=== PATIENT | female | born 1935 | race Caucasian/White ===

== ENCOUNTER 2018-03-19 22:34 | Inpatient (IN) ==
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
[2018-03-19] MEDS ORDERED: Morphine Inj 4 MG/ML Vial IV.PUSH ONE (23:11)
[2018-03-19] MEDS ORDERED: Ketamine Inj 200 MG/20 ML Vial IV.PUSH ONE (23:12)
[2018-03-19] MEDS ORDERED: Ketamine Inj 500 MG/10 ML Vial IV.PUSH ONE (23:45)
[2018-03-19 23:55] LABS: Baso % (Auto) 0.1 % (0.0-2.0); Eos % (Auto) 0.1 % (0.0-4.0); Hematocrit 34.9 % (35.0-46.0); Hemoglobin 11.7 gm/dL (11.6-15.3); Lymph # (Auto) 0.6 th/mm3 (1.0-4.8); Lymph % (Auto) 6.8 % (9.0-44.0); Mean Corpuscular HGB Conc 33.4 % (32.0-36.0); Mean Corpuscular Volume 95.7 fL (80.0-100.0); Mean Platelet Volume 7.6 fL (7.0-11.0); Mono # (Auto) 0.8 th/mm3 (0.0-0.9); Mono % (Auto) 9.6 % (0.0-8.0); Neut # (Auto) 7.2 th/mm3 (1.8-7.7); Neut % (Auto) 83.4 % (16.0-70.0); Platelet Count 151 th/mm3 (150-450); Red Blood Count 3.65 mil/mm3 (4.00-5.30); Red Cell Distribution Width 13.1 % (11.6-17.2); White Blood Count 8.6 th/mm3 (4.0-11.0)
[2018-03-20 00:25] LABS: Carbon Dioxide 24.7 meq/L (21.0-32.0)
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
[2018-03-20] MEDS: Sod Chloride 0.9% Inj 1,000 ML IV.SIG SCH ×2 (02:44→12:37)
[2018-03-20] MEDS: Morphine Inj 4 MG/ML Vial IV.PUSH PRN ×6 (02:52→22:48)
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
[2018-03-20] MEDS ORDERED: Methocarbamol 500 MG Tablet PO SCH (08:00)
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
[2018-03-20] MEDS: Senna/Docusate Sodium 8.6/50 MG Tablet PO SCH (09:49)
[2018-03-20] MEDS: Lisinopril 10 MG Tablet PO SCH (09:49)
[2018-03-20] MEDS: amLODIPine 10 MG Tablet PO SCH (09:50)
[2018-03-20] MEDS: Lidocaine 5% Patch T-DERMAL SCH (09:50)
[2018-03-20] MEDS: Polyethylene Glycol 3350 17 GM Packet PO SCH (09:50)
[2018-03-20] MEDS: Pantoprazole Inj 40 MG Vial IV.PUSH SCH (09:51)
[2018-03-20] MEDS: Levothyroxine 50 MCG Tablet PO SCH (10:01)
[2018-03-20] MEDS ORDERED: Morphine Inj 4 MG/ML Vial ONE (10:44)
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
[2018-03-20] MEDS: Methocarbamol Inj 1,000 MG in Sodium Chlor 0.9% Inj 240 ML IV.SIG SCH ×2 (14:29→22:00)
[2018-03-21] MEDS: Sod Chloride 0.9% Inj 1,000 ML IV.SIG SCH ×4 (02:39→20:57)
[2018-03-21] MEDS: Morphine Inj 4 MG/ML Vial IV.PUSH PRN ×4 (03:39→20:46)
[2018-03-21 05:18] LABS: Baso % (Auto) 0.3 % (0.0-2.0); Eos # (Auto) 0.2 th/mm3 (0.0-0.4); Eos % (Auto) 3.3 % (0.0-4.0); Hematocrit 32.8 % (35.0-46.0); Hemoglobin 10.8 gm/dL (11.6-15.3); Lymph # (Auto) 1.3 th/mm3 (1.0-4.8); Lymph % (Auto) 18.4 % (9.0-44.0); Mean Corpuscular HGB Conc 32.9 % (32.0-36.0); Mean Corpuscular Hemoglobin 32.1 pg (27.0-34.0); Mean Corpuscular Volume 97.8 fL (80.0-100.0); Mean Platelet Volume 8.2 fL (7.0-11.0); Mono # (Auto) 0.5 th/mm3 (0.0-0.9); Mono % (Auto) 7.8 % (0.0-8.0); Neut # (Auto) 4.9 th/mm3 (1.8-7.7); Neut % (Auto) 70.2 % (16.0-70.0); Platelet Count 114 th/mm3 (150-450); Red Blood Count 3.36 mil/mm3 (4.00-5.30); Red Cell Distribution Width 13.6 % (11.6-17.2); White Blood Count 6.9 th/mm3 (4.0-11.0)
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
[2018-03-21 06:04] LABS: Albumin 2.6 g/dL (3.4-5.0); Anion Gap 11 meq/L (5-15); Aspartate Aminotransferase 47 U/L (15-37); Blood Urea Nitrogen 7 mg/dL (7-18); Calcium 7.7 mg/dL (8.5-10.1); Chloride 113 meq/L (98-107); Glomerular Filtration Rate Greater Than 89 mL/min (>89); Glucose,Random 104 mg/dL (74-106); Potassium 3.8 meq/L (3.5-5.1); Sodium 145 meq/L (136-145)
[2018-03-21 06:08] LABS: Alanine Aminotransferase 40 U/L (10-53); Alkaline Phosphatase 72 U/L (45-117); Total Protein 5.6 g/dL (6.4-8.2)
[2018-03-21] MEDS: Levothyroxine 50 MCG Tablet PO SCH (06:36)
[2018-03-21] MEDS: Pantoprazole Inj 40 MG Vial IV.PUSH SCH (08:59)
[2018-03-21] MEDS: Lidocaine 5% Patch T-DERMAL SCH (09:00)
[2018-03-21] MEDS: Methocarbamol Inj 1,000 MG in Sodium Chlor 0.9% Inj 240 ML IV.SIG SCH ×2 (09:03→20:54)
[2018-03-21] MEDS ORDERED: Ibuprofen 600 MG Tablet PO SCH (10:45)
[2018-03-21] MEDS: Ibuprofen 400 MG Tablet PO SCH ×2 (12:21→20:47)
--- NOTE | 2018-03-21 17:33 | P.PNNS ---
Subjective Interval history: This afternoon the patient is doing well. She is awake and alert in the bed. She denies any neck pain or any pain, numbness or tingling to the extremities. She does complain of pain to the right chest wall due to her rib fractures. She has no sensorimotor deficits upon evaluation. Speech Therapy did evaluate the patient and recommend thin liquids. <Desmond Gaona E - Last Filed: 03/21/18 17:16> Physical Exam Vital signs: Vital Signs 03/20/18 20:00 03/20/18 20:34 03/20/18 20:49 Temperature 99.7 F H Pulse Rate 62 68 Respiratory Rate 25 H 22 Blood Pressure 133/61 Pulse Oximetry 100 100 98 03/20/18 22:47 03/21/18 00:00 03/21/18 00:10 Temperature 99.0 F Pulse Rate 71 79 Respiratory Rate 12 19 17 Blood Pressure 143/64 H Pulse Oximetry 98 03/21/18 02:39 03/21/18 03:44 03/21/18 04:00 Temperature 99.0 F Pulse Rate 75 71 Respiratory Rate 15 17 21 Blood Pressure 154/47 H Pulse Oximetry 98 03/21/18 06:35 03/21/18 06:36 03/21/18 08:00 Temperature 98.1 F Pulse Rate 58 L Respiratory Rate 15 15 10 L Blood Pressure 135/60 Pulse Oximetry 95 03/21/18 12:00 03/21/18 12:39 03/21/18 13:09 Temperature 98.8 F Pulse Rate 76 74 Respiratory Rate 16 17 12 Blood Pressure 175/70 H Pulse Oximetry 95 03/21/18 16:10 03/21/18 16:17 Temperature Pulse Rate 99 H Respiratory Rate 29 H Blood Pressure Pulse Oximetry 97 Intake & Output 03/20/18 03/21/18 03/21/18 18:59 06:59 18:59 Intake Total 1286 / 1286 950 / 950 2250 / 2250 Output Total 320 / 320 500 / 500 Balance 966 / 966 450 / 450 2250 / 2250 Weight 61 kg Intake: IV 1106 / 1106 850 / 850 2250 / 2250 Ofirmev Inj 1,000 mg In 100 ml 200 / 200 100 / 100 @ 400 mls/hr IV.SIG Q6H [facility] Rx# :[id number] Robaxin Inj 1,000 MG In NS Inj 250 / 250 250 / 250 250 / 250 240 ML @ 500 mls/hr IV.SIG Q8H [facility] Rx#:[id number] NS Inj 1,000 ML @ 50 mls/hr IV. 656 / 656 1999 / 1999 SIG .Q20H [facility] Rx#:[id number] Oral 180 / 180 100 / 100 Output: Urine 320 / 320 Urine Amount (Catheter) 500 / 500 Indwelling Urethral Catheter 500 / 500 Other: Date of Last Bowel Movement 03/19/18 03/19/18 03/19/18 Narrative: GENERAL: Awake & alert in bed watching TV. Affect essentially normal. Readily interacts. No apparent distress. HEENT: Normocephalic, atraumatic. PERRLA 2 mm brisk, EOMI. No otorrhea or rhinorrhea. MMM & pink, tongue midline to protrusion. NECK: In [place] J cervical collar. Midline cervical spine NTTP. No JVD. Trachea midline. MUSCULOSKELETAL: MEYER spontaneously & purposefully. Extremities NTTP. Lumbar spine NTTP. NEUROLOGICAL: AAOx3. Speech clear & appropriate. Follows simple commands w/o difficulty. CN II through XII grossly intact. PERRLA 2 mm brisk, EOMI. Tongue midline to protrusion. Sensation intact to light touch to all extremities. Muscle strength is normal to all major flexion & extension muscle groups of the extremities. - Urinary Catheter Management Indwelling Urethral Catheter Cath placed during this visit: no <Desmond Gaona E - Last Filed: 03/21/18 17:16> Vital signs: Vital Signs 03/23/18 22:00 03/23/18 23:53 03/24/18 00:00 Temperature 98.8 F Pulse Rate 83 90 100 H Respiratory Rate 16 21 Blood Pressure 165/77 H Pulse Oximetry 98 03/24/18 04:00 03/24/18 04:08 03/24/18 04:51 Temperature 98.3 F Pulse Rate 86 86 87 Respiratory Rate 22 16 Blood Pressure 171/77 H Pulse Oximetry 100 03/24/18 08:00 03/24/18 08:10 03/24/18 09:44 Temperature 98.4 F Pulse Rate 78 Respiratory Rate 24 18 Blood Pressure 164/85 H Pulse Oximetry 100 98 03/24/18 11:10 03/24/18 12:00 03/24/18 13:44 Temperature 98.5 F Pulse Rate 84 Respiratory Rate 19 17 25 H Blood Pressure 164/77 H Pulse Oximetry 100 03/24/18 16:00 Temperature 97.9 F Pulse Rate 108 H Respiratory Rate 28 H Blood Pressure 129/78 Pulse Oximetry 100 Intake & Output 03/24/18 03/24/18 03/25/18 06:59 18:59 06:59 Intake Total 360 / 360 700 / 700 Output Total 1000 / 1000 675 / 675 Balance -640 / -640 25 / 25 Weight 65.5 kg Intake: Oral 360 / 360 500 / 500 Oral Supplement 200 / 200 Output: Urine 1000 / 1000 675 / 675 Stool 0 / 0 Other: Date of Last Bowel Movement 03/19/18 03/19/18 # Bowel Movements 0 - Urinary Catheter Management Indwelling Urethral Catheter Cath placed during this visit: no <Seth Pereyra - Last Filed: 03/24/18 21:16> Assessment and Plan - Plan Impression: 1. Atypical hangman's fracture of C2 2. Mild acute L4 compression fracture The patient is doing well and is neurologically intact. Past 24 hrs: 99.7 T max. Abdomen/Pelvis CT 03/20/18 00:00 CONCLUSION: No evidence of acute abdominal or pelvic process. No masses are identified. Multiple rib fractures, transverse process fractures and fracture of the L4 vertebral body. Bilateral effusions and bibasilar atelectasis. Pancreatic duct dilatation as above. Chest CT 03/20/18 00:00 CONCLUSION: 1. Rib fractures on the right moderate size right pleural effusion with compressive atelectasis right base 2. There is no pneumothorax 3. Trace effusion left. Neck CTA 03/20/18 00:00 CONCLUSION: 1. CT fracture. 2. Vertebral arteries are intact. Chest X-Ray 03/20/18 07:11 CONCLUSION: 1. Hypoaerated lungs with mild atelectasis 2. Multiple right-sided rib fractures without evidence of pneumothorax or significant pleural effusion. 3. Mild cardiomegaly Cervical Spine CT 03/20/18 09:38 CONCLUSION: 1. Atypical hangman's fracture of C2 with posterior vertebral body fracture extending laterally into the pars intraarticularis and foramen transversarium. 2. No evidence of significant traumatic listhesis in the neutral position. 3. Mild degenerative anterolisthesis at C4-5 secondary to facet arthropathy. 4. Moderate facet arthropathy. 5. No evidence of additional fractures or epidural hematoma. Lumbar Spine CT 03/20/18 09:40 CONCLUSION: 1. Mild acute compression fracture of L4. 2. Mild facet arthropathy and degenerative disc disease 3. No other acute abnormality. Plan: Primary & critical care management per Trauma. Neuro checks. [place] J cervical collar at all times. Bedrest. Logroll patient. Diet per Speech Therapy. <Desmond Gaona - Last Filed: 03/21/18 17:16> - Attending Attestation The exam, history, and the medical decision-making described in the above note were completed with the assistance of the mid-level provider. I reviewed and agree with the findings presented. I attest that I had a [id number] encounter with the patient on the same day, and personally performed and documented my assessment and findings in the medical record. <Seth Pereyra - Last Filed: 03/24/18 21:16>
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
[2018-03-22] MEDS: Ibuprofen 400 MG Tablet PO SCH ×4 (00:16→22:58)
[2018-03-22] MEDS: Morphine Inj 4 MG/ML Vial IV.PUSH PRN ×4 (00:37→20:04)
[2018-03-22] MEDS: Methocarbamol Inj 1,000 MG in Sodium Chlor 0.9% Inj 240 ML IV.SIG SCH ×3 (02:32→18:11)
[2018-03-22 05:25] LABS: Baso % (Auto) 0.5 % (0.0-2.0); Eos # (Auto) 0.2 th/mm3 (0.0-0.4); Eos % (Auto) 3.5 % (0.0-4.0); Hematocrit 30.4 % (35.0-46.0); Hemoglobin 10.2 gm/dL (11.6-15.3); Lymph # (Auto) 1.2 th/mm3 (1.0-4.8); Lymph % (Auto) 18.5 % (9.0-44.0); Mean Corpuscular HGB Conc 33.5 % (32.0-36.0); Mean Corpuscular Hemoglobin 32.4 pg (27.0-34.0); Mean Corpuscular Volume 96.6 fL (80.0-100.0); Mean Platelet Volume 8.4 fL (7.0-11.0); Mono # (Auto) 0.6 th/mm3 (0.0-0.9); Mono % (Auto) 9.2 % (0.0-8.0); Neut # (Auto) 4.6 th/mm3 (1.8-7.7); Neut % (Auto) 68.3 % (16.0-70.0); Platelet Count 105 th/mm3 (150-450); Red Blood Count 3.14 mil/mm3 (4.00-5.30); Red Cell Distribution Width 13.6 % (11.6-17.2); White Blood Count 6.7 th/mm3 (4.0-11.0)
[2018-03-22 05:42] LABS: Alanine Aminotransferase 33 U/L (10-53); Albumin 2.5 g/dL (3.4-5.0); Anion Gap 8 meq/L (5-15); Aspartate Aminotransferase 32 U/L (15-37); Blood Urea Nitrogen 7 mg/dL (7-18); Calcium 7.6 mg/dL (8.5-10.1); Carbon Dioxide 22.8 meq/L (21.0-32.0); Chloride 113 meq/L (98-107); Glomerular Filtration Rate Greater Than 89 mL/min (>89); Glucose,Random 107 mg/dL (74-106); Sodium 144 meq/L (136-145)
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
[2018-03-22 05:45] LABS: Alkaline Phosphatase 74 U/L (45-117); Total Protein 5.3 g/dL (6.4-8.2)
[2018-03-22] MEDS: Levothyroxine 50 MCG Tablet PO SCH (05:50)
[2018-03-22] MEDS: Lidocaine 5% Patch T-DERMAL SCH (09:25)
[2018-03-22] MEDS: Sod Chloride 0.9% Inj 1,000 ML IV.SIG SCH (09:26)
[2018-03-22] MEDS: Pantoprazole Inj 40 MG Vial IV.PUSH SCH (09:26)
[2018-03-22] MEDS: Polyethylene Glycol 3350 17 GM Packet PO SCH (10:34)
[2018-03-22] MEDS: Senna/Docusate Sodium 8.6/50 MG Tablet PO SCH ×2 (10:34→20:04)
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
[2018-03-22] MEDS: Enoxaparin Inj 30 MG/0.3 ML Syringe SQ SCH (20:03)
[2018-03-23] MEDS: Methocarbamol Inj 1,000 MG in Sodium Chlor 0.9% Inj 240 ML IV.SIG SCH ×2 (02:11→09:04)
[2018-03-23] MEDS: Sod Chloride 0.9% Inj 1,000 ML IV.SIG SCH ×2 (04:00→09:44)
[2018-03-23] MEDS: Ibuprofen 400 MG Tablet PO SCH ×3 (04:22→16:30)
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
[2018-03-23 05:10] LABS: Baso % (Auto) 0.7 % (0.0-2.0); Eos # (Auto) 0.3 th/mm3 (0.0-0.4); Eos % (Auto) 3.9 % (0.0-4.0); Hematocrit 38.3 % (35.0-46.0); Hemoglobin 12.6 gm/dL (11.6-15.3); Lymph # (Auto) 1.3 th/mm3 (1.0-4.8); Mean Corpuscular HGB Conc 32.9 % (32.0-36.0); Mean Corpuscular Hemoglobin 31.8 pg (27.0-34.0); Mean Corpuscular Volume 96.9 fL (80.0-100.0); Mean Platelet Volume 8.5 fL (7.0-11.0); Mono # (Auto) 0.7 th/mm3 (0.0-0.9); Mono % (Auto) 9.9 % (0.0-8.0); Neut # (Auto) 4.4 th/mm3 (1.8-7.7); Neut % (Auto) 65.5 % (16.0-70.0); Platelet Count 131 th/mm3 (150-450); Red Blood Count 3.95 mil/mm3 (4.00-5.30); Red Cell Distribution Width 13.7 % (11.6-17.2); White Blood Count 6.7 th/mm3 (4.0-11.0)
[2018-03-23] MEDS: Levothyroxine 50 MCG Tablet PO SCH (05:30)
[2018-03-23 05:50] LABS: Alanine Aminotransferase 35 U/L (10-53); Albumin 2.8 g/dL (3.4-5.0); Alkaline Phosphatase 99 U/L (45-117); Anion Gap 11 meq/L (5-15); Aspartate Aminotransferase 36 U/L (15-37); Blood Urea Nitrogen 6 mg/dL (7-18); Calcium 8.4 mg/dL (8.5-10.1); Carbon Dioxide 19.6 meq/L (21.0-32.0); Chloride 110 meq/L (98-107); Glomerular Filtration Rate Greater Than 89 mL/min (>89); Glucose,Random 86 mg/dL (74-106); Potassium 3.2 meq/L (3.5-5.1); Sodium 141 meq/L (136-145); Total Protein 6.3 g/dL (6.4-8.2)
[2018-03-23] MEDS ORDERED: Potassium Chloride 20 MEQ Pwd Pkt PO ONE (07:00)
[2018-03-23] MEDS: amLODIPine 10 MG Tablet PO SCH (08:53)
[2018-03-23] MEDS: Senna/Docusate Sodium 8.6/50 MG Tablet PO SCH ×2 (08:53→20:11)
[2018-03-23] MEDS: Polyethylene Glycol 3350 17 GM Packet PO SCH (08:53)
[2018-03-23] MEDS: Lisinopril 10 MG Tablet PO SCH (08:53)
[2018-03-23] MEDS: Pantoprazole Inj 40 MG Vial IV.PUSH SCH (08:54)
[2018-03-23] MEDS: Potassium Chloride 25 MEQ Effervescent Tablet PO SCH ×2 (09:11→20:11)
[2018-03-23] MEDS: Enoxaparin Inj 30 MG/0.3 ML Syringe SQ SCH ×2 (09:12→20:15)
[2018-03-23] MEDS: Lidocaine 5% Patch T-DERMAL SCH (09:44)
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
--- NOTE | 2018-03-23 16:12 | P.PNNS ---
Subjective Interval history: 03/23: doing well, c/o of cervical pain <ArmaanCarmen - Last Filed: 03/23/18 16:09> Physical Exam Vital signs: Vital Signs 03/22/18 20:00 03/23/18 00:00 03/23/18 03:48 Temperature 98.8 F 98.8 F Pulse Rate 80 65 75 Respiratory Rate 23 20 22 Blood Pressure 177/79 H 163/70 H Pulse Oximetry 95 96 03/23/18 04:00 03/23/18 06:37 03/23/18 08:00 Temperature 98.4 F 98.5 F Pulse Rate 75 72 Respiratory Rate 16 22 Blood Pressure 176/81 H 189/82 H Pulse Oximetry 98 99 95 03/23/18 08:23 03/23/18 12:00 03/23/18 16:06 Temperature 98.5 F Pulse Rate 87 104 H 93 H Respiratory Rate 19 19 17 Blood Pressure 146/66 H Pulse Oximetry 98 96 Intake & Output 03/22/18 03/23/18 03/23/18 18:59 06:59 18:59 Intake Total 2600 / 2600 2740 / 2740 Output Total 1200 / 1200 Balance 2600 / 2600 1540 / 1540 Weight 64.5 kg Intake: IV 1250 / 1250 2500 / 2500 Robaxin Inj 1,000 MG In NS Inj 250 / 250 500 / 500 240 ML @ 500 mls/hr IV.SIG Q8H [facility] Rx#:[id number] NS Inj 1,000 ML @ 50 mls/hr IV. 1000 / 1000 2000 / 2000 SIG .Q20H [facility] Rx#:[id number] Oral 700 / 700 240 / 240 Oral Supplement 650 / 650 Output: Urine 1200 / 1200 Stool 0 / 0 Other: Date of Last Bowel Movement 03/19/18 03/19/18 Narrative: GENERAL: Awake & alert. No apparent distress. HEENT: Normocephalic, atraumatic. PERRLA 2 mm brisk, EOMI. MMM & pink, tongue midline to protrusion. NECK: In [place] cervical collar. No JVD. Trachea midline. MUSCULOSKELETAL: moves all four spontaneously & purposefully. NEUROLOGICAL: AAOx3. Speech clear & appropriate. Follows simple commands w/o difficulty. PERRLA 2 mm brisk, EOMI. Tongue midline to protrusion. - Urinary Catheter Management Indwelling Urethral Catheter Cath placed during this visit: yes, but has since been removed by the nurse Reason for continuing: Other continuation reason Insertion date: 03/20/18 Insertion time: 14:00 Removal date: 03/22/18 Removal time: 14:00 <Carmen Crook - Last Filed: 03/23/18 16:09> Vital signs: Vital Signs 03/23/18 20:00 03/23/18 20:26 03/23/18 22:00 Temperature 98.8 F Pulse Rate 98 H 107 H 83 Respiratory Rate 18 Blood Pressure 156/76 H Pulse Oximetry 94 L 95 03/23/18 23:53 03/24/18 00:00 03/24/18 04:00 Temperature 98.8 F Pulse Rate 90 100 H 86 Respiratory Rate 16 21 Blood Pressure 165/77 H Pulse Oximetry 98 03/24/18 04:08 03/24/18 04:51 03/24/18 08:00 Temperature 98.3 F 98.4 F Pulse Rate 86 87 78 Respiratory Rate 22 16 24 Blood Pressure 171/77 H 164/85 H Pulse Oximetry 100 100 03/24/18 08:10 03/24/18 09:44 03/24/18 11:10 Temperature Pulse Rate Respiratory Rate 18 19 Blood Pressure Pulse Oximetry 98 03/24/18 12:00 03/24/18 13:44 Temperature 98.5 F Pulse Rate 84 Respiratory Rate 17 25 H Blood Pressure 164/77 H Pulse Oximetry 100 Intake & Output 03/23/18 03/24/18 03/24/18 18:59 06:59 18:59 Intake Total 1090 / 1090 360 / 360 Output Total 1850 / 1850 1000 / 1000 Balance -760 / -760 -640 / -640 Weight 65.5 kg Intake: IV 250 / 250 Robaxin Inj 1,000 MG In NS Inj 250 / 250 240 ML @ 500 mls/hr IV.SIG Q8H [facility] Rx#:[id number] Oral 840 / 840 360 / 360 Output: Urine 1850 / 1850 1000 / 1000 Stool 0 / 0 0 / 0 Other: Date of Last Bowel Movement 03/19/18 03/19/18 03/19/18 Narrative: GENERAL: Ms López is awake & alert. No apparent distress. HEENT: Normocephalic, atraumatic. PERRLA 2 mm brisk, EOMI. MMM & pink, tongue midline to protrusion. NECK: In [place] cervical collar. No JVD. Trachea midline. MUSCULOSKELETAL: moves all four spontaneously & purposefully. NEUROLOGICAL: AAOx3. Speech clear & appropriate. Follows simple commands w/o difficulty. PERRLA 2 mm brisk, EOMI. Tongue midline to protrusion. - Urinary Catheter Management Indwelling Urethral Catheter Cath placed during this visit: no <Elgin Contreras - Last Filed: 03/24/18 16:40> Assessment and Plan - Plan Impression: 1. Atypical hangman's fracture of C2 2. Mild acute L4 compression fracture The patient continues to do well and remains neurologically intact. Cervical Spine CT 03/20/18 09:38 CONCLUSION: 1. Atypical hangman's fracture of C2 with posterior vertebral body fracture extending laterally into the pars intraarticularis and foramen transversarium. 2. No evidence of significant traumatic listhesis in the neutral position. 3. Mild degenerative anterolisthesis at C4-5 secondary to facet arthropathy. 4. Moderate facet arthropathy. 5. No evidence of additional fractures or epidural hematoma. Lumbar Spine CT 03/20/18 09:40 CONCLUSION: 1. Mild acute compression fracture of L4. 2. Mild facet arthropathy and degenerative disc disease 3. No other acute abnormality. Plan: cont Primary & critical care management per Trauma. Neuro checks. [place] cervical collar at all times. therapy and rehab efforts <Carmen Crook - Last Filed: 03/23/18 16:09> - Plan I again reviewed her studies Impression: 1. Atypical hangman's fracture of C2 2. Mild acute L4 compression fracture The patient continues to do well and remains neurologically intact. Cervical Spine CT 03/20/18 09:38 CONCLUSION: 1. Atypical hangman's fracture of C2 with posterior vertebral body fracture extending laterally into the pars intraarticularis and foramen transversarium. 2. No evidence of significant traumatic listhesis in the neutral position. 3. Mild degenerative anterolisthesis at C4-5 secondary to facet arthropathy. 4. Moderate facet arthropathy. 5. No evidence of additional fractures or epidural hematoma. Lumbar Spine CT 03/20/18 09:40 CONCLUSION: 1. Mild acute compression fracture of L4. 2. Mild facet arthropathy and degenerative disc disease 3. No other acute abnormality. Neuro. Continue neuro checks in a serial fashion. Pulmonary. aggressive pulmonary toilette, nasotracheal suction, and breathing treatments with nebulizers. Daily PT and OT Renal. Continue to monitor closely urine output, BUN and creatinine Endocrine. Continue to Monitor serial Acu checks and SSI as needed in detail ID continue to monitor for signs of infection Continue Protonix for stress ulcer prophylaxis Continue Aung hose and SCD's for DVT prophylaxis The exam, history, and the medical decision-making described in the above note were completed with the assistance of the mid-level provider. I reviewed and agree with the findings presented. I attest that I had a [id number] encounter with the patient on the same day, and personally performed and documented my assessment and findings in the medical record. <Elgin Contreras - Last Filed: 03/24/18 16:40>
[2018-03-24] MEDS: Ibuprofen 400 MG Tablet PO SCH ×4 (01:52→21:50)
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
[2018-03-24] MEDS: Levothyroxine 50 MCG Tablet PO SCH (05:34)
[2018-03-24 06:00] LABS: Baso % (Auto) 0.7 % (0.0-2.0); Eos # (Auto) 0.3 th/mm3 (0.0-0.4); Eos % (Auto) 4.3 % (0.0-4.0); Hematocrit 34.2 % (35.0-46.0); Hemoglobin 11.5 gm/dL (11.6-15.3); Lymph # (Auto) 1.3 th/mm3 (1.0-4.8); Lymph % (Auto) 21.3 % (9.0-44.0); Mean Corpuscular HGB Conc 33.6 % (32.0-36.0); Mean Corpuscular Hemoglobin 32.5 pg (27.0-34.0); Mean Corpuscular Volume 96.7 fL (80.0-100.0); Mean Platelet Volume 8.4 fL (7.0-11.0); Mono # (Auto) 0.7 th/mm3 (0.0-0.9); Mono % (Auto) 11.8 % (0.0-8.0); Neut # (Auto) 3.8 th/mm3 (1.8-7.7); Neut % (Auto) 61.9 % (16.0-70.0); Platelet Count 170 th/mm3 (150-450); Red Blood Count 3.54 mil/mm3 (4.00-5.30); Red Cell Distribution Width 13.6 % (11.6-17.2); White Blood Count 6.1 th/mm3 (4.0-11.0)
[2018-03-24] MEDS: Morphine Inj 4 MG/ML Vial IV.PUSH PRN ×2 (06:03→09:41)
[2018-03-24 06:24] LABS: Alanine Aminotransferase 36 U/L (10-53); Albumin 2.5 g/dL (3.4-5.0); Anion Gap 12 meq/L (5-15); Aspartate Aminotransferase 39 U/L (15-37); Blood Urea Nitrogen 6 mg/dL (7-18); Calcium 8.6 mg/dL (8.5-10.1); Carbon Dioxide 21.3 meq/L (21.0-32.0); Chloride 108 meq/L (98-107); Glomerular Filtration Rate Greater Than 89 mL/min (>89); Glucose,Random 92 mg/dL (74-106); Potassium 3.7 meq/L (3.5-5.1); Sodium 141 meq/L (136-145)
[2018-03-24 06:26] LABS: Alkaline Phosphatase 100 U/L (45-117); Total Protein 6.3 g/dL (6.4-8.2)
[2018-03-24] MEDS: Enoxaparin Inj 30 MG/0.3 ML Syringe SQ SCH ×2 (08:14→21:51)
[2018-03-24] MEDS: Polyethylene Glycol 3350 17 GM Packet PO SCH (08:24)
[2018-03-24] MEDS: Lidocaine 5% Patch T-DERMAL SCH ×2 (08:25→09:43)
[2018-03-24] MEDS: Lisinopril 10 MG Tablet PO SCH (08:25)
[2018-03-24] MEDS: Senna/Docusate Sodium 8.6/50 MG Tablet PO SCH ×2 (08:26→21:52)
[2018-03-24] MEDS: amLODIPine 10 MG Tablet PO SCH (08:26)
--- NOTE | 2018-03-24 12:15 | P.PNNS ---
Subjective Interval history: 03/24: still remains painful, currently feeding herself breakfast. <Carmen Crook - Last Filed: 03/24/18 12:15> Physical Exam Vital signs: Vital Signs 03/23/18 16:00 03/23/18 16:06 03/23/18 20:00 Temperature 98.7 F 98.8 F Pulse Rate 84 93 H 98 H Respiratory Rate 22 17 Blood Pressure 141/69 H 156/76 H Pulse Oximetry 94 L 94 L 03/23/18 20:26 03/23/18 22:00 03/23/18 23:53 Temperature Pulse Rate 107 H 83 90 Respiratory Rate 18 16 Blood Pressure Pulse Oximetry 95 03/24/18 00:00 03/24/18 04:00 03/24/18 04:08 Temperature 98.8 F 98.3 F Pulse Rate 100 H 86 86 Respiratory Rate 21 22 Blood Pressure 165/77 H 171/77 H Pulse Oximetry 98 100 03/24/18 04:51 03/24/18 08:10 03/24/18 09:44 Temperature Pulse Rate 87 Respiratory Rate 16 18 Blood Pressure Pulse Oximetry 98 03/24/18 11:10 Temperature Pulse Rate Respiratory Rate 19 Blood Pressure Pulse Oximetry Intake & Output 03/23/18 03/24/18 03/24/18 18:59 06:59 18:59 Intake Total 1090 / 1090 360 / 360 Output Total 1850 / 1850 1000 / 1000 Balance -760 / -760 -640 / -640 Weight 65.5 kg Intake: IV 250 / 250 Robaxin Inj 1,000 MG In NS Inj 250 / 250 240 ML @ 500 mls/hr IV.SIG Q8H [facility] Rx#:[id number] Oral 840 / 840 360 / 360 Output: Urine 1850 / 1850 1000 / 1000 Stool 0 / 0 0 / 0 Other: Date of Last Bowel Movement 03/19/18 03/19/18 Narrative: GENERAL: Awake & alert. No apparent distress. Feeding herself breakfast. HEENT: Normocephalic, atraumatic. PERRLA 2 mm brisk, EOMI. MMM & pink, tongue midline to protrusion. NECK: In [place] J cervical collar. No JVD. Trachea midline. MUSCULOSKELETAL: moves all four spontaneously & purposefully. NEUROLOGICAL: AAOx3. Speech clear & appropriate. Follows simple commands w/o difficulty. PERRLA 2 mm brisk, EOMI. Tongue midline to protrusion. - Urinary Catheter Management Indwelling Urethral Catheter Cath placed during this visit: yes, but has since been removed by the nurse Reason for continuing: Other continuation reason Insertion date: 03/20/18 Insertion time: 14:00 Removal date: 03/22/18 Removal time: 14:00 <Carmen Crook - Last Filed: 03/24/18 12:15> Vital signs: Vital Signs 03/24/18 20:00 03/24/18 21:43 03/25/18 00:00 Temperature 98.7 F 99.2 F Pulse Rate 88 96 H Respiratory Rate 27 H 25 H Blood Pressure 128/67 129/58 L Pulse Oximetry 100 95 95 03/25/18 04:00 03/25/18 08:00 03/25/18 11:08 Temperature 99.0 F 98.4 F Pulse Rate 72 93 H Respiratory Rate 19 18 Blood Pressure 142/67 H 130/61 Pulse Oximetry 97 94 L 95 03/25/18 12:00 03/25/18 16:45 03/25/18 18:00 Temperature 98.5 F Pulse Rate 82 Respiratory Rate 13 20 16 Blood Pressure 146/69 H Pulse Oximetry 96 Intake & Output 03/25/18 03/25/18 03/26/18 06:59 18:59 06:59 Intake Total 940 / 940 Output Total 1475 / 1475 Balance -535 / -535 Weight 62 kg Intake: Oral 740 / 740 Oral Supplement 200 / 200 Output: Urine 1475 / 1475 Stool 0 / 0 Other: # Voids 1 Date of Last Bowel Movement 03/19/18 # Bowel Movements 0 Narrative: GENERAL: Ms López is awake & alert. No apparent distress. Feeding herself breakfast. HEENT: Normocephalic, atraumatic. PERRLA 2 mm brisk, EOMI. MMM & pink, tongue midline to protrusion. NECK: In [place] J cervical collar. No JVD. Trachea midline. MUSCULOSKELETAL: moves all four spontaneously & purposefully. NEUROLOGICAL: AAOx3. Speech clear & appropriate. Follows simple commands w/o difficulty. PERRLA 2 mm brisk, EOMI. Tongue midline to protrusion. - Urinary Catheter Management Indwelling Urethral Catheter Cath placed during this visit: no <Elgin Contreras - Last Filed: 03/25/18 19:48> Assessment and Plan - Plan Impression: 1. Atypical hangman's fracture of C2 2. Mild acute L4 compression fracture The patient continues to do well and remains neurologically intact. Cervical Spine CT 03/20/18 09:38 CONCLUSION: 1. Atypical hangman's fracture of C2 with posterior vertebral body fracture extending laterally into the pars intraarticularis and foramen transversarium. 2. No evidence of significant traumatic listhesis in the neutral position. 3. Mild degenerative anterolisthesis at C4-5 secondary to facet arthropathy. 4. Moderate facet arthropathy. 5. No evidence of additional fractures or epidural hematoma. Lumbar Spine CT 03/20/18 09:40 CONCLUSION: 1. Mild acute compression fracture of L4. 2. Mild facet arthropathy and degenerative disc disease 3. No other acute abnormality. Plan: cont Primary & critical care management per Trauma. Neuro checks. [place] J cervical collar at all times. therapy and rehab efforts LSO brace when out of bed clear for OOB from NRS standpoint <Carmen Crook - Last Filed: 03/24/18 12:15> - Plan 1. Atypical hangman's fracture of C2 2. Mild acute L4 compression fracture Continue nonoperatrive management with brace and collar Continue neuro checks Pulmonary: aggressive pulmonary toilette, nasotracheal suction, and breathing treatments with nebulizers. Daily PT and OT Renal: Continue to monitor closely urine output, BUN and creatinine Endocrine: Continue to Monitor serial Acu checks and SSI as needed in detail ID continue to monitor for signs of infection Continue Protonix for stress ulcer prophylaxis Continue Aung hose and SCD's for DVT prophylaxis Further recommendations will be provided depending on the patient's clinical evaluation and follow up studies. The exam, history, and the medical decision-making described in the above note were completed with the assistance of the mid-level provider. I reviewed and agree with the findings presented. I attest that I had a [id number] encounter with the patient on the same day, and personally performed and documented my assessment and findings in the medical record. <Elgin Contreras - Last Filed: 03/25/18 19:48>
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
--- NOTE | 2018-03-24 21:19 | CT ---
EXAM DATE: 03/24/2018 9:06 PM EDT AGE/SEX: 82 years / Female INDICATIONS: Shortness of breath, evaluate right pleural effusion. CLINICAL DATA: This is the patient's initial encounter. Patient reports that signs and symptoms have been present for 1 day and indicates a pain score of 3/10. MEDICAL/SURGICAL HISTORY: Hypertension. Thyroid disease. None. RADIATION DOSE: 11.84 CTDI (mGy) COMPARISON: [facility] – [place], [place] CHEST W CONTRAST, 03/20/2018. . TECHNIQUE: Multiple contiguous axial images were obtained through the chest during bolus infusion of 75 ml Omnipaque 350 (iohexol) nonionic water-soluble contrast as a single exam dose. Images were obtained in suspended respiration using multiple row detector helical technique. Using automated exp osure control and adjustment of the mA and/or kV according to patient size, radiation dose was kept a s low as reasonably achievable to obtain optimal diagnostic quality images. DICOM format image data is available electronically for review and comparison. FINDINGS: There is been a significant increase in the size of the right pleural effusion, now measuring 8.3 cm in AP dimension (previously measured 2.5 cm). Small left pleural effusion has also increased in size, now measuring 2 cm. There is persistent collapse of the right lower lobe and compressive atelectasis in the left lower lobe. Large hiatus hernia containing the fundus of the stomach is similar to prior . The heart is normal in size. No evidence of pneumothorax. Again noted are multiple right-sided fractures including lateral third, fourth, sixth, seventh ribs, posterior lateral seventh, eighth, ninth, 10th ribs, and posterior 11th 10, 9, eighth, seventh, sixth , and fifth ribs (at the costochondral junctions). CONCLUSION: 1. Significant increase in size of right pleural fluid and mild increase in size of left pleural eff usion. 2. Multiple right rib fractures involving lateral, posterior lateral, and costovertebral junction re gion. 3. No evidence of pneumothorax. Electronically signed by: Ubaldo Gillespie MD 03/24/2018 9:18 PM EDT
[2018-03-25 04:21] LABS: Baso % (Auto) 0.6 % (0.0-2.0); Eos # (Auto) 0.3 th/mm3 (0.0-0.4); Eos % (Auto) 5.4 % (0.0-4.0); Hematocrit 31.6 % (35.0-46.0); Hemoglobin 10.6 gm/dL (11.6-15.3); Lymph # (Auto) 1.2 th/mm3 (1.0-4.8); Mean Corpuscular HGB Conc 33.4 % (32.0-36.0); Mean Corpuscular Hemoglobin 31.7 pg (27.0-34.0); Mean Platelet Volume 7.8 fL (7.0-11.0); Mono # (Auto) 0.8 th/mm3 (0.0-0.9); Mono % (Auto) 13.8 % (0.0-8.0); Neut # (Auto) 3.5 th/mm3 (1.8-7.7); Neut % (Auto) 59.2 % (16.0-70.0); Platelet Count 167 th/mm3 (150-450); Red Blood Count 3.33 mil/mm3 (4.00-5.30); Red Cell Distribution Width 13.6 % (11.6-17.2); White Blood Count 5.9 th/mm3 (4.0-11.0)
[2018-03-25] MEDS: Ibuprofen 400 MG Tablet PO SCH ×5 (04:33→17:25)
[2018-03-25 04:38] LABS: Alanine Aminotransferase 67 U/L (10-53); Albumin 2.6 g/dL (3.4-5.0); Alkaline Phosphatase 98 U/L (45-117); Anion Gap 11 meq/L (5-15); Aspartate Aminotransferase 80 U/L (15-37); Blood Urea Nitrogen 8 mg/dL (7-18); Calcium 8.8 mg/dL (8.5-10.1); Carbon Dioxide 24.1 meq/L (21.0-32.0); Chloride 103 meq/L (98-107); Glomerular Filtration Rate Greater Than 89 mL/min (>89); Glucose,Random 103 mg/dL (74-106); Potassium 3.5 meq/L (3.5-5.1); Sodium 138 meq/L (136-145)
--- NOTE | 2018-03-25 06:33 | XR ---
EXAM DATE: 03/25/2018 6:07 AM EDT AGE/SEX: 82 years / Female INDICATIONS: . Shortness of breath. CLINICAL DATA: This is the patient's subsequent encounter. Patient reports that signs and symptoms h ave been present for 1 week and indicates a pain score of Nonresponsive. MEDICAL/SURGICAL HISTORY: Hypertension. None. COMPARISON: [facility] – [place], CHEST 1V SINGLE AP, 03/24/2018. . FINDINGS: Bilateral mostly basilar airspace disease remains, right greater than left. Multiple right rib fractu res. No pneumothorax. Heart size enlarged. No significant change compared with March 24. CONCLUSION: Stable exam with bilateral airspace disease, right greater than left. Multiple right rib fractures. Electronically signed by: Igor Alonso MD 03/25/2018 6:31 AM EDT
[2018-03-25] MEDS: Levothyroxine 50 MCG Tablet PO SCH (06:40)
[2018-03-25] MEDS: Polyethylene Glycol 3350 17 GM Packet PO SCH (09:56)
[2018-03-25] MEDS: Enoxaparin Inj 30 MG/0.3 ML Syringe SQ SCH ×2 (09:57→20:32)
[2018-03-25] MEDS: Senna/Docusate Sodium 8.6/50 MG Tablet PO SCH ×2 (10:12→20:32)
[2018-03-25] MEDS: amLODIPine 10 MG Tablet PO SCH (10:15)
[2018-03-25] MEDS: Lidocaine 5% Patch T-DERMAL SCH (10:15)
[2018-03-25] MEDS: Lisinopril 10 MG Tablet PO SCH (10:15)
--- NOTE | 2018-03-25 13:32 | P.PNNS ---
Subjective Interval history: 03/25: no new neuro complaints <Carmen Crook - Last Filed: 03/25/18 13:30> Physical Exam Vital signs: Vital Signs 03/24/18 13:44 03/24/18 16:00 03/24/18 20:00 Temperature 97.9 F 98.7 F Pulse Rate 108 H 88 Respiratory Rate 25 H 28 H 27 H Blood Pressure 129/78 128/67 Pulse Oximetry 100 100 03/24/18 21:43 03/25/18 00:00 03/25/18 04:00 Temperature 99.2 F 99.0 F Pulse Rate 96 H 72 Respiratory Rate 25 H 19 Blood Pressure 129/58 L 142/67 H Pulse Oximetry 95 95 97 03/25/18 11:08 Temperature Pulse Rate Respiratory Rate Blood Pressure Pulse Oximetry 95 Intake & Output 03/24/18 03/25/18 03/25/18 18:59 06:59 18:59 Intake Total 700 / 700 940 / 940 Output Total 675 / 675 1475 / 1475 Balance 25 / -535 / -535 Weight 62 kg Intake: Oral 500 / 500 740 / 740 Oral Supplement 200 / 200 200 / 200 Output: Urine 675 / 675 1475 / 1475 Stool 0 / 0 Other: # Voids 1 Date of Last Bowel Movement 03/19/18 03/19/18 # Bowel Movements 0 0 Narrative: GENERAL: Ms López is awake & alert. No apparent distress. HEENT: Normocephalic, atraumatic. PERRLA 2 mm brisk, EOMI. NECK: In [place] J cervical collar. No JVD. Trachea midline. MUSCULOSKELETAL: moves all four spontaneously & purposefully. NEUROLOGICAL: AAOx3. Speech clear & appropriate. Follows simple commands w/o difficulty. PERRLA 2 mm brisk, EOMI. Tongue midline to protrusion. - Urinary Catheter Management Indwelling Urethral Catheter Cath placed during this visit: yes, but has since been removed by the nurse Reason for continuing: Other continuation reason Insertion date: 03/20/18 Insertion time: 14:00 Removal date: 03/22/18 Removal time: 14:00 <Carmen Crook - Last Filed: 03/25/18 13:30> Vital signs: Vital Signs 03/24/18 21:43 03/25/18 00:00 03/25/18 04:00 Temperature 99.2 F 99.0 F Pulse Rate 96 H 72 Respiratory Rate 25 H 19 Blood Pressure 129/58 L 142/67 H Pulse Oximetry 95 95 97 03/25/18 08:00 03/25/18 10:00 03/25/18 11:08 Temperature 98.4 F Pulse Rate 93 H 87 Respiratory Rate 18 Blood Pressure 130/61 Pulse Oximetry 94 L 95 03/25/18 12:00 03/25/18 14:00 03/25/18 15:45 Temperature 98.5 F Pulse Rate 82 103 H 80 Respiratory Rate 13 12 Blood Pressure 146/69 H 137/73 Pulse Oximetry 96 90 L 03/25/18 16:00 03/25/18 16:30 03/25/18 16:45 Temperature 98.8 F Pulse Rate 86 87 Respiratory Rate 15 20 Blood Pressure 158/84 H 136/68 Pulse Oximetry 95 95 03/25/18 17:00 03/25/18 18:00 Temperature Pulse Rate 82 118 H Respiratory Rate 16 Blood Pressure 119/59 L Pulse Oximetry 96 Intake & Output 03/25/18 03/25/18 03/26/18 06:59 18:59 06:59 Intake Total 940 / 940 Output Total 1475 / 1475 Balance -535 / -535 Weight 62 kg Intake: Oral 740 / 740 Oral Supplement 200 / 200 Output: Urine 1475 / 1475 Stool 0 / 0 Other: # Voids 1 Date of Last Bowel Movement 03/19/18 # Bowel Movements 0 Narrative: The patient is alert, awake. Comfortable, in no acute distress. Speech is fluent. Cranial nerve examination: pupils to be equal, round and reactive to light. Extra-ocular movements are intact. Facial motor and sensory function are normal and symmetrical. Gross hearing appears intact. Sternocleidomastoid and trapezius muscles are symmetrical. Other cranial nerves are intact. Neck is in [place] collar. Muscle strength is normal in all muscle groups of both upper and lower extremities. Sensory examination is intact to light touch and pin prick in both the upper and lower extremities. Deep tendon reflexes are symmetrical in both upper and lower extremities. There is a bilateral plantar flexion response. Cerebellar examination is unremarkable, without deficits. Lungs are clear Heart regular rhythm is regular rate Skin warm and dry - Urinary Catheter Management Indwelling Urethral Catheter Cath placed during this visit: no <Ben,Elgin - Last Filed: 03/25/18 20:08> Assessment and Plan - Plan Impression: C2 fracture mild L4 compression fracture Plan: cont supportive care, maintain [place] collar at all times, LSO when out of bed <Carmen Crook - Last Filed: 03/25/18 13:30> - Plan 1. Atypical hangman's fracture of C2 2. Mild acute L4 compression fracture Continue nonoperatrive management with brace and collar Continue neuro checks Pulmonary: aggressive pulmonary toilette, nasotracheal suction, and breathing treatments with nebulizers. Daily PT and OT Renal: Continue to monitor closely urine output, BUN and creatinine Endocrine: Continue to Monitor serial Acu checks and SSI as needed in detail ID continue to monitor for signs of infection Continue Protonix for stress ulcer prophylaxis Continue Aung hose and SCD's for DVT prophylaxis Further recommendations will be provided depending on the patient's clinical evaluation and follow up studies. The exam, history, and the medical decision-making described in the above note were completed with the assistance of the mid-level provider. I reviewed and agree with the findings presented. I attest that I had a [id number] encounter with the patient on the same day, and personally performed and documented my assessment and findings in the medical record. <Elgin Contreras - Last Filed: 03/25/18 20:08>
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
[2018-03-25] MEDS: Morphine Inj 4 MG/ML Vial IV.PUSH PRN (20:32)
[2018-03-26] MEDS: Morphine Inj 4 MG/ML Vial IV.PUSH PRN ×2 (04:06→08:21)
[2018-03-26] MEDS: Levothyroxine 50 MCG Tablet PO SCH (05:44)
[2018-03-26 05:57] LABS: Baso % (Auto) 0.4 % (0.0-2.0); Eos # (Auto) 0.3 th/mm3 (0.0-0.4); Eos % (Auto) 3.8 % (0.0-4.0); Hematocrit 31.5 % (35.0-46.0); Hemoglobin 10.7 gm/dL (11.6-15.3); Lymph # (Auto) 1.1 th/mm3 (1.0-4.8); Lymph % (Auto) 15.9 % (9.0-44.0); Mean Corpuscular HGB Conc 33.8 % (32.0-36.0); Mean Corpuscular Hemoglobin 32.5 pg (27.0-34.0); Mean Corpuscular Volume 96.2 fL (80.0-100.0); Mean Platelet Volume 7.6 fL (7.0-11.0); Mono # (Auto) 0.9 th/mm3 (0.0-0.9); Mono % (Auto) 13.3 % (0.0-8.0); Neut # (Auto) 4.7 th/mm3 (1.8-7.7); Neut % (Auto) 66.6 % (16.0-70.0); Platelet Count 237 th/mm3 (150-450); Red Blood Count 3.28 mil/mm3 (4.00-5.30); Red Cell Distribution Width 13.4 % (11.6-17.2); White Blood Count 7.1 th/mm3 (4.0-11.0)
[2018-03-26 06:03] LABS: Albumin 2.7 g/dL (3.4-5.0); Anion Gap 11 meq/L (5-15); Aspartate Aminotransferase 64 U/L (15-37); Blood Urea Nitrogen 12 mg/dL (7-18); Calcium 8.3 mg/dL (8.5-10.1); Carbon Dioxide 26.5 meq/L (21.0-32.0); Chloride 100 meq/L (98-107); Glomerular Filtration Rate Greater Than 89 mL/min (>89); Glucose,Random 91 mg/dL (74-106); Potassium 3.2 meq/L (3.5-5.1); Sodium 137 meq/L (136-145)
[2018-03-26 06:05] LABS: Alanine Aminotransferase 70 U/L (10-53)
[2018-03-26 06:07] LABS: Alkaline Phosphatase 96 U/L (45-117)
[2018-03-26] MEDS: Ibuprofen 400 MG Tablet PO SCH ×4 (07:21→16:53)
[2018-03-26] MEDS: Enoxaparin Inj 30 MG/0.3 ML Syringe SQ SCH ×2 (08:20→20:23)
[2018-03-26] MEDS: Lisinopril 10 MG Tablet PO SCH (08:21)
[2018-03-26] MEDS: amLODIPine 10 MG Tablet PO SCH (08:21)
[2018-03-26] MEDS: Lidocaine 5% Patch T-DERMAL SCH (08:21)
[2018-03-26] MEDS: Senna/Docusate Sodium 8.6/50 MG Tablet PO SCH ×2 (08:22→20:26)
[2018-03-26] MEDS: Polyethylene Glycol 3350 17 GM Packet PO SCH (08:22)
--- NOTE | 2018-03-26 13:39 | P.PNNS ---
Physical Exam Vital signs: Vital Signs 03/25/18 14:00 03/25/18 15:45 03/25/18 16:00 Temperature 98.8 F Pulse Rate 103 H 80 86 Respiratory Rate 12 15 Blood Pressure 137/73 158/84 H Pulse Oximetry 90 L 95 03/25/18 16:30 03/25/18 16:45 03/25/18 17:00 Temperature Pulse Rate 87 82 Respiratory Rate 20 Blood Pressure 136/68 119/59 L Pulse Oximetry 95 96 03/25/18 18:00 03/25/18 20:00 03/25/18 20:29 Temperature 98.3 F Pulse Rate 118 H 102 H Respiratory Rate 16 19 Blood Pressure 132/75 Pulse Oximetry 97 98 03/26/18 00:00 03/26/18 04:00 03/26/18 08:00 Temperature 98.3 F 98.3 F 98.1 F Pulse Rate 76 82 90 Respiratory Rate 10 L 22 18 Blood Pressure 133/74 131/96 H 175/79 H Pulse Oximetry 97 98 98 03/26/18 09:30 03/26/18 12:00 Temperature 98.4 F Pulse Rate 112 H Respiratory Rate 20 18 Blood Pressure 113/71 Pulse Oximetry 97 Intake & Output 03/25/18 03/26/18 03/26/18 18:59 06:59 18:59 Intake Total 600 / 600 480 / 480 Output Total 2029 600 / 600 Balance -1430 / -1430 -120 / -120 Weight 59.9 kg Intake: Oral 600 / 600 480 / 480 Output: Urine 950 / 950 200 / 200 Chest Tube Drainage 1080 / 1080 400 / 400 Right Mid-Axillary Chest 1080 / 1080 400 / 400 Other: Date of Last Bowel Movement 03/19/18 03/26/18 # Bowel Movements 1 Narrative: GENERAL: Ms López is awake & alert. No apparent distress. HEENT: Normocephalic, atraumatic. PERRLA 2 mm brisk, EOMI. NECK: In [place] J cervical collar. No JVD. Trachea midline. MUSCULOSKELETAL: moves all four spontaneously & purposefully. NEUROLOGICAL: AAOx3. Speech clear & appropriate. Follows simple commands w/o difficulty. PERRLA 2 mm brisk, EOMI. Tongue midline to protrusion. Chest tube in place - Urinary Catheter Management Indwelling Urethral Catheter Cath placed during this visit: yes, but has since been removed by the nurse Reason for continuing: Other continuation reason Insertion date: 03/20/18 Insertion time: 14:00 Removal date: 03/22/18 Removal time: 14:00 <Carmen Crook - Last Filed: 03/26/18 13:35> Vital signs: Vital Signs 03/27/18 20:27 03/28/18 00:00 03/28/18 03:42 Temperature 98.1 F 98.2 F 97.6 F Pulse Rate 80 75 74 Respiratory Rate 17 18 17 Blood Pressure 130/76 150/74 H 126/63 Pulse Oximetry 99 96 99 03/28/18 08:00 03/28/18 08:53 03/28/18 12:00 Temperature 97.9 F 98.5 F Pulse Rate 73 79 Respiratory Rate 20 18 20 Blood Pressure 157/71 H 142/67 H Pulse Oximetry 97 98 Intake & Output 03/27/18 03/28/18 03/28/18 18:59 06:59 18:59 Intake Total 360 / 360 Output Total 96 / 96 75 / 75 650 / 650 Balance -96 / -96 285 / 285 -650 / -650 Weight 59.9 kg Intake: Oral 360 / 360 Output: Urine 5 / 5 650 / 650 Chest Tube Drainage 96 / 96 70 / 70 Right Mid-Axillary Chest 96 / 96 70 / 70 Other: Post Void Residual 1 # Voids 5 Date of Last Bowel Movement 03/26/18 03/26/18 # Bowel Movements 0 Narrative: Ms López is alert, awake. Comfortable, in no acute distress. Speech is fluent. Cranial nerve examination: pupils to be equal, round and reactive to light. Extra-ocular movements are intact. Facial motor and sensory function are normal and symmetrical. Gross hearing appears intact. Sternocleidomastoid and trapezius muscles are symmetrical. Other cranial nerves are intact. Neck is soft and supple with a good range of motion without pain. Muscle strength is normal in all muscle groups of both upper and lower extremities. Sensory examination is intact to light touch and pin prick in both the upper and lower extremities. Deep tendon reflexes are symmetrical in both upper and lower extremities. There is a bilateral plantar flexion response. Cerebellar examination is unremarkable, without deficits. Lungs are clear Heart regular rhythm is regular rate Skin warm and dry - Urinary Catheter Management Indwelling Urethral Catheter Cath placed during this visit: no <Elgin Contreras - Last Filed: 03/28/18 16:28> Assessment and Plan - Plan Impression 1. Atypical hangman's fracture of C2 2. Mild acute L4 compression fracture Plan cont nonsurgical mgt with [place] collar, and LSO when out of bed cont therapy and mobilize <ArmaanCarmen - Last Filed: 03/26/18 13:35> - Assessment (1) C2 cervical fracture Code(s): S12.100A - Unspecified displaced fracture of second cervical vertebra, initial encounter for closed fracture Status: Acute (2) Lumbar vertebral fracture Code(s): S32.009A - Unspecified fracture of unspecified lumbar vertebra, initial encounter for closed fracture Status: Acute Qualifiers: Lumbar vertebra fracture level: L4 Fracture type: closed - Plan 82 year old female with C2 fracture associated with multiple rib fractures on the right side combination Her pulmonary function deteriorated, and placement of a chest tube was necessary. She Drained about 1 L of serosanguineous fluid from the right chest since the placement of the chest tube Much better breath sounds bilateral Hemodynamically remains stable Continue nonoperatrive management with brace and collar Continue neuro checks Pulmonary: aggressive pulmonary toilette, nasotracheal suction, and breathing treatments with nebulizers. Daily PT and OT Renal: Continue to monitor closely urine output, BUN and creatinine Endocrine: Continue to Monitor serial Acu checks and SSI as needed in detail ID continue to monitor for signs of infection Continue Protonix for stress ulcer prophylaxis Continue Aung hose and SCD's for DVT prophylaxis Further recommendations will be provided depending on the patient's clinical evaluation and follow up studies. The exam, history, and the medical decision-making described in the above note were completed with the assistance of the mid-level provider. I reviewed and agree with the findings presented. I attest that I had a [id number] encounter with the patient on the same day, and personally performed and documented my assessment and findings in the medical record. <Elgin Contreras - Last Filed: 03/28/18 16:28>
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
[2018-03-27] MEDS: Levothyroxine 50 MCG Tablet PO SCH (05:13)
--- NOTE | 2018-03-27 05:25 | XR ---
EXAM DATE: 03/27/2018 5:04 AM EDT AGE/SEX: 82 years / Female INDICATIONS: Respiratory disease. CLINICAL DATA: This is the patient's subsequent encounter. Patient reports that signs and symptoms h ave been present for 1 week and indicates a pain score of Nonresponsive. MEDICAL/SURGICAL HISTORY: Hypertension. None. COMPARISON: [facility] [place], CHEST 1V SINGLE AP, 03/25/2018. . FINDINGS: Small caliber chest tube now present at the right base and with near-complete resolution of the previ ously seen pleural effusion. Multiple right rib fractures are again noted. No perceptible pneumothora x. There is trace atelectasis at the left base. CONCLUSION: 1. Decreased pleural effusion on the right status post chest tube placement. 2. No pneumothorax seen. 3. Trace left base atelectasis, slightly improved. 4. Right rib fractures again seen. Electronically signed by: Balwinder He MD 03/27/2018 5:23 AM EDT
[2018-03-27] MEDS: amLODIPine 10 MG Tablet PO SCH (09:36)
[2018-03-27] MEDS: Lisinopril 10 MG Tablet PO SCH (09:36)
[2018-03-27] MEDS: Senna/Docusate Sodium 8.6/50 MG Tablet PO SCH ×2 (09:36→21:05)
[2018-03-27] MEDS: Enoxaparin Inj 30 MG/0.3 ML Syringe SQ SCH ×2 (09:37→21:04)
[2018-03-27] MEDS: Lidocaine 5% Patch T-DERMAL SCH (09:37)
[2018-03-27] MEDS: Polyethylene Glycol 3350 17 GM Packet PO SCH (09:39)
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
--- NOTE | 2018-03-28 04:37 | XR ---
EXAM DATE: 03/28/2018 4:31 AM EDT AGE/SEX: 82 years / Female INDICATIONS: Respiratory disease. CLINICAL DATA: This is the patient's subsequent encounter. Patient reports that signs and symptoms h ave been present for 1 week and indicates a pain score of 9/10. MEDICAL/SURGICAL HISTORY: Hypertension. None. COMPARISON: [facility] – [place], CHEST 1V SINGLE AP, 03/27/2018. . FINDINGS: Single AP view of the chest. Multiple right-sided rib fractures again seen. Right-sided pigtail chest catheter remains in place. No evidence of pneumothorax. Mild patchy bilateral lower lung zone opacit y unchanged. No evidence of pleural effusion. CONCLUSION: No significant interval change. Right-sided chest tube remains in place. No evidence of pneumothorax. Electronically signed by: Shane Willoughby MD 03/28/2018 4:36 AM EDT
[2018-03-28 06:33] LABS: Baso % (Auto) 0.5 % (0.0-2.0); Eos # (Auto) 0.2 th/mm3 (0.0-0.4); Eos % (Auto) 3.2 % (0.0-4.0); Hematocrit 26.6 % (35.0-46.0); Hemoglobin 8.9 gm/dL (11.6-15.3); Lymph # (Auto) 1.3 th/mm3 (1.0-4.8); Lymph % (Auto) 17.9 % (9.0-44.0); Mean Corpuscular HGB Conc 33.6 % (32.0-36.0); Mean Corpuscular Hemoglobin 31.9 pg (27.0-34.0); Mean Corpuscular Volume 95.1 fL (80.0-100.0); Mono # (Auto) 1.1 th/mm3 (0.0-0.9); Mono % (Auto) 16.1 % (0.0-8.0); Neut # (Auto) 4.4 th/mm3 (1.8-7.7); Neut % (Auto) 62.3 % (16.0-70.0); Platelet Count 329 th/mm3 (150-450); Red Blood Count 2.79 mil/mm3 (4.00-5.30); Red Cell Distribution Width 13.7 % (11.6-17.2)
[2018-03-28 06:50] LABS: Anion Gap 7 meq/L (5-15); Blood Urea Nitrogen 10 mg/dL (7-18); Calcium 8.3 mg/dL (8.5-10.1); Carbon Dioxide 30.7 meq/L (21.0-32.0); Chloride 102 meq/L (98-107); Glomerular Filtration Rate Greater Than 89 mL/min (>89); Glucose,Random 105 mg/dL (74-106); Potassium 3.7 meq/L (3.5-5.1); Sodium 140 meq/L (136-145)
[2018-03-28] MEDS: Enoxaparin Inj 30 MG/0.3 ML Syringe SQ SCH ×2 (08:51→20:46)
[2018-03-28] MEDS: Lisinopril 10 MG Tablet PO SCH (08:52)
[2018-03-28] MEDS: amLODIPine 10 MG Tablet PO SCH (08:52)
[2018-03-28] MEDS: Lidocaine 5% Patch T-DERMAL SCH (08:53)
[2018-03-28] MEDS: Levothyroxine 50 MCG Tablet PO SCH (08:53)
[2018-03-28] MEDS: Senna/Docusate Sodium 8.6/50 MG Tablet PO SCH ×2 (08:53→20:46)
[2018-03-28] MEDS: Polyethylene Glycol 3350 17 GM Packet PO SCH (08:54)
[2018-03-28] MEDS: Morphine Inj 4 MG/ML Vial IV.PUSH PRN ×3 (08:59→20:46)
--- NOTE | 2018-03-28 12:41 | P.PNNS ---
Subjective Interval history: Pt awake and alert. Complains of right sided rib pain. No neck pain, radiculopathy or paresthesias in UEs. She is wearing her [place] cervical collar. Physical Exam Vital signs: Vital Signs 03/27/18 16:00 03/27/18 20:27 03/28/18 00:00 Temperature 97.9 F 98.1 F 98.2 F Pulse Rate 86 80 75 Respiratory Rate 18 17 18 Blood Pressure 144/76 H 130/76 150/74 H Pulse Oximetry 97 99 96 03/28/18 03:42 03/28/18 08:00 03/28/18 08:53 Temperature 97.6 F 97.9 F Pulse Rate 74 73 Respiratory Rate 17 20 18 Blood Pressure 126/63 157/71 H Pulse Oximetry 99 97 Intake & Output 03/27/18 03/28/18 03/28/18 18:59 06:59 18:59 Intake Total 360 / 360 Output Total 96 / 96 75 / 75 650 / 650 Balance -96 / -96 285 / 285 -650 / -650 Weight 59.9 kg Intake: Oral 360 / 360 Output: Urine 5 / 5 650 / 650 Chest Tube Drainage 96 / 96 70 / 70 Right Mid-Axillary Chest 96 / 96 70 / 70 Other: Post Void Residual 1 # Voids 5 Date of Last Bowel Movement 03/26/18 03/26/18 # Bowel Movements 0 - Constitutional no acute distress - Routine HEENT Exam Head: Present: normocephalic, atraumatic Eye: Present: PERRL - Routine Respiratory Exam Present: CTA bilaterally. Absent: rhonchi, wheezes Comments: Right CT in place. - Routine Cardiovascular Exam Present: RRR, S1, S2. Absent: murmur - Routine Abdominal Exam Present: soft, normoactive bowel sounds. Absent: tenderness, distended - Routine Skin Exam Present: intact. Absent: cyanosis, erythema - Routine Neurological Exam Present: alert, moving all extremities, normal speech. Absent: motor deficit Neck in [place] cervical collar. - Detailed Neurological Exam: Coma Scale Eye Opening: Spontaneous Verbal Response: Oriented Motor Response: Obey commands Josr Coma Scale Total: 15 - Urinary Catheter Management Indwelling Urethral Catheter Cath placed during this visit: yes, but has since been removed by the nurse Reason for continuing: Other continuation reason Insertion date: 03/20/18 Insertion time: 14:00 Removal date: 03/22/18 Removal time: 14:00 Assessment and Plan - Assessment (1) C2 cervical fracture Code(s): S12.100A - Unspecified displaced fracture of second cervical vertebra, initial encounter for closed fracture Status: Acute (2) Lumbar vertebral fracture Code(s): S32.009A - Unspecified fracture of unspecified lumbar vertebra, initial encounter for closed fracture Status: Acute Qualifiers: Lumbar vertebra fracture level: L4 Fracture type: closed - Plan Impression 1. Atypical hangman's fracture of C2 2. Mild acute L4 compression fracture Plan cont nonsurgical mgt with [place] collar, and LSO when out of bed cont rehab efforts. Continue with trauma care
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
[2018-03-29] MEDS: Morphine Inj 4 MG/ML Vial IV.PUSH PRN ×4 (02:07→23:04)
[2018-03-29 05:18] LABS: Hematocrit 26.2 % (35.0-46.0)
--- NOTE | 2018-03-29 05:41 | XR ---
EXAM DATE: 03/29/2018 5:35 AM EDT AGE/SEX: 82 years / Female INDICATIONS: Shortness of breath. CLINICAL DATA: This is the patient's subsequent encounter. Patient reports that signs and symptoms h ave been present for 1 day and indicates a pain score of Nonresponsive. MEDICAL/SURGICAL HISTORY: Hypertension. None. COMPARISON: [facility] [place], CHEST 1V SINGLE AP, 03/28/2018. . FINDINGS: Single AP view of the chest. Mild patchy bilateral lower lung zone opacity unchanged. Right-sided uli st tube is no longer seen. No evidence of pneumothorax. No evidence of pleural effusion. Multiple rig ht-sided rib fractures again seen. CONCLUSION: Interval removal of right-sided chest tube. No evidence of pneumothorax. Electronically signed by: Shane Willoughby MD 03/29/2018 5:40 AM EDT
[2018-03-29] MEDS ORDERED: Morphine Inj 4 MG/ML Vial ONE (05:58)
[2018-03-29] MEDS: Levothyroxine 50 MCG Tablet PO SCH (06:01)
[2018-03-29] MEDS: Enoxaparin Inj 30 MG/0.3 ML Syringe SQ SCH ×2 (09:27→20:36)
[2018-03-29] MEDS: Lidocaine 5% Patch T-DERMAL SCH (09:27)
[2018-03-29] MEDS: Polyethylene Glycol 3350 17 GM Packet PO SCH (09:28)
[2018-03-29] MEDS: amLODIPine 10 MG Tablet PO SCH (09:28)
[2018-03-29] MEDS: Lisinopril 10 MG Tablet PO SCH (09:28)
[2018-03-29] MEDS: Senna/Docusate Sodium 8.6/50 MG Tablet PO SCH ×2 (09:28→20:36)
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
[2018-03-30] MEDS: Levothyroxine 50 MCG Tablet PO SCH (05:56)
[2018-03-30] MEDS: Morphine Inj 4 MG/ML Vial IV.PUSH PRN (05:57)
[2018-03-30] MEDS: Enoxaparin Inj 30 MG/0.3 ML Syringe SQ SCH ×2 (08:38→20:46)
[2018-03-30] MEDS: amLODIPine 10 MG Tablet PO SCH (08:39)
[2018-03-30] MEDS: Polyethylene Glycol 3350 17 GM Packet PO SCH (08:39)
[2018-03-30] MEDS: Senna/Docusate Sodium 8.6/50 MG Tablet PO SCH ×2 (08:39→20:46)
[2018-03-30] MEDS: Lisinopril 10 MG Tablet PO SCH (08:39)
[2018-03-30] MEDS: Lidocaine 5% Patch T-DERMAL SCH (08:39)
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
--- NOTE | 2018-03-30 11:21 | P.PNNS ---
Subjective Interval history: 03/30: report to be doing better no new neuro complaints. <Carmen Crook - Last Filed: 03/30/18 11:20> Physical Exam Vital signs: Vital Signs 03/29/18 12:00 03/29/18 16:00 03/29/18 20:00 Temperature 97.1 F L 97.7 F 97.5 F L Pulse Rate 86 73 80 Respiratory Rate 20 20 18 Blood Pressure 148/72 H 133/62 150/67 H Pulse Oximetry 99 100 98 03/30/18 00:00 03/30/18 02:07 03/30/18 07:00 Temperature 97.8 F Pulse Rate 83 Respiratory Rate 18 16 18 Blood Pressure 150/81 H Pulse Oximetry 97 03/30/18 08:00 03/30/18 11:18 Temperature 97.5 F L Pulse Rate 82 Respiratory Rate 18 18 Blood Pressure 155/72 H Pulse Oximetry 99 Intake & Output 03/29/18 03/30/18 03/30/18 18:59 06:59 18:59 Intake Total 120 / 120 480 / 480 Output Total 200 / 200 Balance -80 / -80 480 / 480 Weight 60.1 kg Intake: Oral 120 / 120 480 / 480 Output: Urine 200 / 200 Other: # Voids 4 Date of Last Bowel Movement 03/29/18 03/29/18 Narrative: feeding herself breakfast [place] collar in place moves all four extremities alert, speech fluent - Urinary Catheter Management Indwelling Urethral Catheter Cath placed during this visit: yes, but has since been removed by the nurse Reason for continuing: Other continuation reason Insertion date: 03/20/18 Insertion time: 14:00 Removal date: 03/22/18 Removal time: 14:00 <Carmen Crook - Last Filed: 03/30/18 11:20> Narrative: Ms López is alert, awake. Comfortable, in no acute distress. Speech is fluent. Cranial nerve examination: pupils to be equal, round and reactive to light. Extra-ocular movements are intact. Facial motor and sensory function are normal and symmetrical. Gross hearing appears intact. Sternocleidomastoid and trapezius muscles are symmetrical. Other cranial nerves are intact. Neck is soft and supple with a good range of motion without pain. Muscle strength is normal in all muscle groups of both upper and lower extremities. Sensory examination is intact to light touch and pin prick in both the upper and lower extremities. Deep tendon reflexes are symmetrical in both upper and lower extremities. There is a bilateral plantar flexion response. Cerebellar examination is unremarkable, without deficits. Lungs are clear Heart regular rhythm is regular rate Skin warm and dry - Urinary Catheter Management Indwelling Urethral Catheter Cath placed during this visit: no <BenElgin - Last Filed: 04/08/18 14:08> Assessment and Plan - Plan Impression: 82 year old female with C2 fracture L4 compression fracture Plan: cont [place] collar cont therapy and rehab <Carmen Crook - Last Filed: 03/30/18 11:20> - Assessment (1) C2 cervical fracture Code(s): S12.100A - Unspecified displaced fracture of second cervical vertebra, initial encounter for closed fracture Status: Acute (2) Lumbar vertebral fracture Code(s): S32.009A - Unspecified fracture of unspecified lumbar vertebra, initial encounter for closed fracture Status: Acute Qualifiers: Lumbar vertebra fracture level: L4 Fracture type: closed - Plan - Assessment (1) C2 cervical fracture Code(s): S12.100A - Unspecified displaced fracture of second cervical vertebra, initial encounter for closed fracture Status: Acute (2) Lumbar vertebral fracture Code(s): S32.009A - Unspecified fracture of unspecified lumbar vertebra, initial encounter for closed fracture Status: Acute Qualifiers: Lumbar vertebra fracture level: L4 Fracture type: closed - Plan 82 year old female with C2 fracture associated with multiple rib fractures on the right side combination C2 fx, T10, T12, L2 and L3 transverse process fx, L4 compression fx Continue nonoperative management Maintain [place] LSO brace when OOB Pain control Bowel regimen OOB-PT and OT Rehab placement Lovenox RIGHT rib fxs, RIGHT pulmonary contusion, RIGHT FOREST Continue Supportive care Pulmonary toileting CXR shows decreased right effusion, trace LLL atelectasis, no PTX 03/25: RIGHT CT placement Chest tube ordered to water seal Monitor chest tube output for removal CXR in AM Pain control Bowel regimen OOB- PT and OT ordered Daily PT and OT Renal: Continue to monitor closely urine output, BUN and creatinine Endocrine: Continue to Monitor serial Acu checks and SSI as needed in detail ID continue to monitor for signs of infection Continue Protonix for stress ulcer prophylaxis Continue Aung hose and SCD's for DVT prophylaxis Further recommendations will be provided depending on the patient's clinical evaluation and follow up studies. The exam, history, and the medical decision-making described in the above note were completed with the assistance of the mid-level provider. I reviewed and agree with the findings presented. I attest that I had a [id number] encounter with the patient on the same day, and personally performed and documented my assessment and findings in the medical record. <Elgin Contreras - Last Filed: 04/08/18 14:08>
[2018-03-31] MEDS: Morphine Inj 4 MG/ML Vial IV.PUSH PRN ×2 (00:13→06:22)
[2018-03-31] MEDS: Levothyroxine 50 MCG Tablet PO SCH (05:44)
[2018-03-31] MEDS: Lisinopril 10 MG Tablet PO SCH (08:39)
[2018-03-31] MEDS: Enoxaparin Inj 30 MG/0.3 ML Syringe SQ SCH (08:39)
[2018-03-31] MEDS: amLODIPine 10 MG Tablet PO SCH (08:39)
[2018-03-31] MEDS: Senna/Docusate Sodium 8.6/50 MG Tablet PO SCH (08:39)
[2018-03-31] MEDS: Lidocaine 5% Patch T-DERMAL SCH (08:39)
[2018-03-31] MEDS: Polyethylene Glycol 3350 17 GM Packet PO SCH (08:40)
== END 2018-03-31 18:38 ==
LOC: NEPC 22:34 → NEDA 23:14 → N03 03-20 02:20 → N06 03-26 14:59
PROVIDERS: ADMIT Surgery; ATTEND Surgery